=== PATIENT | female | born 1945 | race Caucasian/White ===

== ENCOUNTER 2017-08-02 11:03 | Observation (INO) | payer MEDICARE ==
[2017-08-02] MEDS ORDERED: Morphine INJ* 4 MG/ML 1 ML CARPUJECT IV ONE ×2 (11:25→14:48)
[2017-08-02] MEDS ORDERED: Ondansetron INJ* 2 MG/ML VIAL IV ONE (11:25)
[2017-08-02] MEDS ORDERED: NS 0.9% 1000 ML* 1,000 ML IV ONE ×2 (11:25→13:03)
--- NOTE | 2017-08-02 12:16 | RAD ---
HISTORY: Abdominal pain COMPARISONS: June 29, 2017 VIEWS: 1: frontal portable view of the chest at 12:00 PM FINDINGS: LINES AND TUBES: None. CARDIOMEDIASTINAL SILHOUETTE: The cardiomediastinal silhouette is normal for portable technique. PLEURA: The costophrenic angles are sharp. No pleural abnormalities are noted. LUNG PARENCHYMA: The lungs are clear. ABDOMEN: The upper abdomen is clear. There is no subphrenic gas. BONES AND SOFT TISSUES: No bone or soft tissue abnormalities are noted. IMPRESSION: NO ACTIVE CARDIOPULMONARY DISEASE.
[2017-08-02 12:50] LABS: Hematocrit 38 % (35-47); Hemoglobin 12.6 g/dl (12.0-16.0); Mean Corpuscular HGB Conc 33 g/dl (31-36); Mean Corpuscular Hemoglobin 31 pg (27-31); Mean Corpuscular Volume 92 fL (80-97); Mean Platelet Volume 11 um3 (7.4-10.4); Red Cell Distribution Width 15 % (10.5-15); White Blood Count 6.4 10^3/ul (3.5-10.8)
[2017-08-02 13:02] LABS: Albumin 4.4 g/dL (3.2-5.2); BUN/Creatinine Ratio 30.6 (8-20); C Reactive Protein 1.46 mg/L (< 5.00); Calcium 9.5 mg/dL (8.6-10.3); EGFR African American 71.9 (>60); EGFR Non-African American 55.9 (>60); Globulin 1.8 g/dL (2-4); Magnesium 2.1 mg/dL (1.9-2.7); Potassium 4.7 mmol/L (3.5-5.0); Total Bilirubin 0.4 mg/dL (0.2-1.0); Total Protein 6.2 g/dL (6.4-8.9)
[2017-08-02] MEDS ORDERED: Iodixanol* (CONTRAST) 320 MG/ML 100 ML SDV IV ONE (13:19)
--- NOTE | 2017-08-02 14:01 | RAD ---
CLINICAL HISTORY: Severe constipation, vomiting COMPARISON: November 16, 2007 TECHNIQUE: Multiple contiguous axial CT scans were obtained of the abdomen and pelvis after the administration of intravenous contrast. Coronal and sagittal multiplanar reformations are submitted for review. Oral contrast was administered. Delayed images were obtained through the abdomen and pelvis. FINDINGS: LUNG BASES: The lung bases are clear. LIVER: The liver is normal in shape, size, contour, and attenuation. BILE DUCTS: There is no intrahepatic or extrahepatic biliary dilatation. GALLBLADDER: The gallbladder is normal, without pericholecystic inflammatory change. PANCREAS: The pancreas is normal, without mass or ductal dilatation. SPLEEN: Normal in size and appearance. UPPER GI TRACT: Evaluation of the gastrointestinal tract is limited by incomplete gastric distention. The upper GI tract is unremarkable. SMALL BOWEL AND MESENTERY: The small bowel is normal in contour, course, and caliber. There is no obstruction or dilatation. COLON: There are multiple diverticula of the sigmoid colon. There is no pericolonic inflammatory change. ADRENALS: Normal bilaterally. KIDNEYS: The kidneys are normal in shape, size, contour, and axis. There is no hydronephrosis or nephrolithiasis. BLADDER: The bladder is smooth in contour. PELVIC ORGANS: The pelvic organs are not visualized. AORTA: The aorta is normal. IVC: Unremarkable LYMPH NODES: There is no lymphadenopathy by size criteria. ABDOMINAL WALL: There is no evidence for abdominal wall hernia. BONES AND SOFT TISSUES: Mild degenerative changes are noted OTHER: None IMPRESSION: DIVERTICULOSIS
[2017-08-02 14:09] LABS: Urine Bacteria Absent (Absent); Urine Bilirubin Negative (Negative); Urine Glucose Negative (Negative); Urine Nitrite Positive (Negative)
[2017-08-02] MEDS ORDERED: Bisacodyl SUPP* 10 MG SUPP PR ONE (15:37)
[2017-08-02] MEDS ORDERED: Fluconazole 150 MG (NF) 150 MG TAB PO ONE (15:37)
[2017-08-02] MEDS ORDERED: NS 0.9% 1000 ML* 1,000 ML IV SCH (15:45)
[2017-08-02] MEDS ORDERED: LORazepam TAB(*) 1 MG PO PRN (15:45)
--- NOTE | 2017-08-02 15:47 | ED ---
Ivory Gotti SooYoung, scribed for Lul Tee MD on 08/02/17 at 1124 . Abdominal Pain/Female - HPI Summary HPI Summary: A 71 y/o F presents to ED [place] [facility] [place]/o lower abd pain onset this AM. Pain described as cramps and rated as 9 out of 10 at bedside. She is taking Loparemide, last BM was yesterday and "very small chunk." Associated sx: vomiting 2x, constipation, fever, chills. Denies: abd distension, leg pain/ swelling. Aggravating factors: bearing down. Past surgeries: hysterectomy; denies abd surgeries. Pert PMHx: IBS, gastroparesis. Denies DM, diverticulitis. Pt is a non-smoker, no ETOH. 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 - History of Current Complaint Chief Complaint: EDGeneral Stated Complaint: VOMITTING/CONSTIPATION Time Seen by Provider: 08/02/17 11:18 Hx Obtained From: Patient Onset/Duration: Lasting Hours - this AM, Still Present Timing: Constant Severity Currently: Severe Pain Intensity: 9 - at bedside Pain Scale Used: 0-10 Numeric Location: Diffuse - lower abd Character: Cramping Associated Signs and Symptoms: Positive: Fever, Constipation, Vomiting, Other: - pos: chills; neg: abd distension, leg pain/edema Allergies/Adverse Reactions: Allergies Allergy/AdvReac Type Severity Reaction Status Date / Time Sulfa Antibiotics Allergy Unknown Verified 04/07/13 12:43 Reaction Details Home Medications: Home Medications Bupropion XL* [Wellbutrin XL *] 300 mg PO DAILY 08/02/17 [History Confirmed ] Calcium Carbonate CHEW TAB* [Tums*] 500 - 1,000 mg PO Q3HR PRN 08/02/17 [ History Confirmed 08/02/17] Diphenhydramine-Acetaminophen [Tylenol Pm Extra Strength 500-25 mg] 1 tab PO QPM 08/02/17 [History Confirmed 08/02/17] Fexofenadine (NF) [Zoila 180 (NF)] 180 mg PO DAILY 08/02/17 [History Confirmed 08/02/17] Ketoconazole (Topical) [Ketoconazole] 2 % TOPICAL BID PRN 08/02/17 [History Confirmed 08/02/17] Loperamide CAP* [Imodium CAP*] 2 mg PO TID PRN 08/02/17 [History Confirmed 08/02] Lorazepam [Ativan 2 MG TAB] 2 mg PO BEDTIME PRN 08/02/17 [History Confirmed ] Lysine [l-Lysine] 1,000 mg PO DAILY 08/02/17 [History Confirmed 08/02/17] Methylcellulose (Laxative) [Citrucel] 500 mg PO DAILY 08/02/17 [History Confirmed 08/02/17] Mouthwashes [Biotene Dry Mouth Mouthwa] 1 liq PO DAILY PRN 08/02/17 [History Confirmed 08/02/17] Multiple Vitamins W/ Minerals [One Daily Multivitamin Wo] 1 tab PO DAILY [History Confirmed 08/02/17] Naproxen TAB* [Naprosyn 250 mg TAB*] 500 mg PO BID PRN 08/02/17 [History Confirmed 08/02/17] Omeprazole CAP* [Prilosec CAP* 20 MG] 40 mg PO BID 08/02/17 [History Confirmed 08/02/17] Ondansetron TAB* [Zofran 4 MG Tab*] 4 mg PO Q6H PRN 08/02/17 [History Confirmed 08/02/17] Polyethylene Glycol-Propylene [Systane Ultra 0.4-0.3 %] 2 drop OPHTHALMIC DAILY 08/02/17 [History Confirmed 08/02/17] Ranitidine TAB (NF) [Zantac TAB (NF)] 300 mg PO BID 08/02/17 [History Confirmed 08/02/17] Rizatriptan (NF) [Maxalt-[employer] (NF)] 10 mg PO Q2HR PRN 08/02/17 [History Confirmed 08/02/17] Sertraline* [Zoloft*] 200 mg PO DAILY 08/02/17 [History Confirmed 08/02/17] Simethicone [Phazyme] 180 mg PO DAILY 08/02/17 [History Confirmed 08/02/17] Simvastatin TAB(NF) [Zocor(NF)] 20 mg PO BEDTIME 08/02/17 [History Confirmed ] Triamcinolone NASAL SPRAY* [Nasacort AQ Nasal [place]*] 1 spray BOTH NARES QAM [History Confirmed 08/02/17] Vitamin E CAP* 400 unit PO DAILY 08/02/17 [History Confirmed 08/02/17] Ziprasidone * [Geodon (generic) *] 40 mg PO DAILY 08/02/17 [History Confirmed ] PMH/Surg Hx/FS Hx/Imm Hx Previously Healthy: No Endocrine/Hematology History: Denies: Hx Diabetes - pre-DM GI History: Reports: Hx Irritable Bowel, Other GI Disorders - pos: gastroparesis Denies: Hx Diverticulosis Sensory History: Denies: Hx Legally Blind Opthamlomology History: Denies: Hx Legally Blind - Cancer History Hx Chemotherapy: No Hx Radiation Therapy: No Infectious Disease History: No Infectious Disease History: Denies: Traveled Outside the [place] in Last 30 Days - Family History Family History: sister: RA. mother of Breast CA - Social History Occupation: Employed Full-time - [employer] Lives: Alone Alcohol Use: None Hx Tobacco Use: No Review of Systems Positive: Fever, Chills Positive: Abdominal Pain, Vomiting, Other - pos: constipation; neg: abd distention Negative: Edema - neg: leg edema/pain All Other Systems Reviewed And Are Negative: Yes Physical Exam Triage Information Reviewed: Yes Vital Signs On Initial Exam: Initial Vitals Temp Pulse Resp BP Pulse Ox 97.8 F 59 20 142/66 99 08/02/17 11:05 08/02/17 11:05 08/02/17 11:05 08/02/17 11:05 08/02/17 11:05 Vital Signs Reviewed: Yes Appearance: Positive: Well-Appearing, No Pain Distress Skin: Positive: Warm Head/Face: Positive: Normal Head/Face Inspection Eyes: Positive: EOMI ENT: Positive: Normal ENT inspection Neck: Positive: Nontender Respiratory/Lung Sounds: Positive: Clear to Auscultation, Breath Sounds Present Cardiovascular: Positive: RRR. Negative: Murmur Abdomen Description: Positive: Distended - lower abdomen, Other: - tender lower abdomen Musculoskeletal: Positive: Strength/ROM Intact Neurological: Positive: Sensory/Motor Intact, Alert, Oriented to Person Place, Time, CN Intact II-III Psychiatric: Positive: Normal Diagnostics - Vital Signs Vital Signs Temp Pulse Resp BP Pulse Ox 08/02/17 11:05 97.8 F 59 20 142/66 99 - Laboratory Result Diagrams: 08/02/17 11:44 08/02/17 11:44 Lab Statement: Any lab studies that have been ordered have been reviewed, and results considered in the medical decision making process. - Radiology CXR Xray Interpretation: No Acute Changes - IMPRESSION: No active cardiopulmonary dz. ED physician has reviewed this radiology report and agrees. Radiology Interpretation Completed By: Radiologist - CT A/P CT CT Interpretation: Positive (See Comments) - IMPRESSION: DIVERTICULOSIS. ED physician has reviewed this radiology report and agrees. CT Interpretation Completed By: Radiologist - EKG 1134 Cardiac Rate: NL EKG Rhythm: Sinus Rhythm - [address] Segment: Normal EKG Interpretation: nml PA, QRS, QT. No STEMI Abdominal Pain Fem Course/Dx - Course Course Of Treatment: A 71 y/o F presents to ED [place] [facility] [place] c/o lower abd pain onset this AM. Pain described as cramps and rated as 9 out of 10 at bedside. She is taking Loparemide, last BM was yesterday and "very small chunk. " Associated sx: vomiting 2x, constipation, fever, chills. Denies: abd distension, leg pain/swelling. Aggravating factors: bearing down. Past surgeries : hysterectomy; denies abd surgeries. Pert PMHx: IBS, gastroparesis. Denies DM, diverticulitis. Pt is a non-smoker, no ETOH. 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 Pt given fluids, morphine, zofran in ED. EKG is NSR, no STEMI. CXR shows no active cardiopulmonary dz. A/P CT shows "diverticulosis." UA results show 1+ blood, positive nitrate, 1+ leukocyte esterase, 1+ RBC, squamous epithelia present, hyaline casts present. Consulted with hospitalist, will admit pt. - Diagnoses Provider Diagnoses: Lower abdominal pain, unspecified - Provider Notifications Discussed Care Of Patient With: Melida Powell - HOSPITALIST Time Discussed With Above Provider: 15:00 Instructed by Provider To: Admit As Inpatient Discharge - Discharge Plan Condition: Stable Disposition: ADMITTED TO [facility] The documentation as recorded by the Ivory tuttle SooYoung accurately reflects the service I personally performed and the decisions made by me, Lul Tee MD.
[2017-08-02] MEDS ORDERED: cefTRIAXone VIAL(*) 1,000 MG in NS 0.9% 50 ML* 50 ML IVPB SCH (16:00)
[2017-08-02] MEDS ORDERED: Fluconazole 100 MG TAB* TAB PO ONE (17:00)
[2017-08-02] MEDS: Acetaminophen TAB* 325 MG PO PRN ×2 (17:01→21:11)
[2017-08-02] MEDS: Ondansetron INJ* 2 MG/ML VIAL IV SCH ×2 (17:02→21:08)
[2017-08-02] MEDS ORDERED: oxyCODONE/Acetamin 5/325 MG* TAB PO PRN (17:08)
[2017-08-02] MEDS ORDERED: Senna TAB PO SCH (21:00)
[2017-08-02] MEDS ORDERED: Atorvastatin* 10 MG TAB PO SCH (21:00)
[2017-08-02] MEDS: Omeprazole CAP* 20 MG PO SCH (21:10)
[2017-08-02] MEDS: Famotidine TAB* 20 MG PO SCH (21:13)
[2017-08-02] MEDS: Docusate CAP* 100 MG PO SCH (21:13)
[2017-08-02] MEDS: Heparin VIAL(*) 5000 UNITS/ML VIAL (FIVE THOUSAND) SUBCUT SCH (21:15)
--- NOTE | 2017-08-02 22:35 | HP ---
CC: Dr. Jody Pérez * HISTORY AND PHYSICAL: DATE OF ADMISSION: 08/02/17 PRIMARY CARE PROVIDER: Dr. Jody Pérez. ATTENDING PHYSICIAN WHILE IN THE HOSPITAL: Dr. Melida Powell * (report dictated by Micah Zavala NP). CHIEF COMPLAINT: Abdominal pain. HISTORY OF PRESENTING ILLNESS: Ms. Recinos is a 71-year-old female patient. She has a history of hypertension, hyperlipidemia, gastroparesis, anxiety, migraines , IBS, and a history of GERD. She comes into the emergency department today stating that since this morning, she has had abdominal discomfort in the lower pelvic area. She states she chronically has abdominal pain from her gastroparesis, but today the pain was increased and much worse than what it had been previously. She states the pain has been constant. She describes the pain as a sharp stabbing pain in the lower abdomen just suprapubic is where she points. She states it does not get any better or worse with meals. She denied having any fevers, did admit to having some chills, and she denied having any urinary symptoms. Exception she does state that she has noticed that she has been having some irritation in her vaginal area describing a yeast infection, she is actually being actively treated for this by her primary. The patient says that the pain was not getting any better, so she came into the ER today. She says that she has not had a bowel movement in the last 3 days. She has been taking Lomotil basically daily for the last 2 weeks. She thought that maybe she was constipated, came in, was evaluated. She received several rounds of IV pain medications, it was found that she had a UTI and we were asked to evaluate for admission. PAST MEDICAL HISTORY: Include: 1. Hyperlipidemia. 2. Hypertension. 3. Gastroparesis. 4. Anxiety. 5. Migraines. 6. IBS. 7. GERD. PAST SURGICAL HISTORY: She has had hysterectomy. MEDICATIONS: The home meds according to the list that she provided includes: 1. Ativan 2 mg at bedtime as needed. 2. Tylenol PM 1 tablet at bedtime. 3. Nasacort 1 spray both nares q.a.m. 4. Calcium carbonate 500 to 1000 mg every 3 hours as needed. 5. Mouthwash Biotene 1 liquid p.o. daily as needed. 6. Systane eye drops 2 drops ophthalmic daily. 7. Fexofenadine 180 mg daily. 8. Multivitamin 1 tablet daily. 9. Simethicone 180 mg daily. 10. Citrucel 500 mg daily. 11. Lysine 1000 mg daily. 12. Geodon 40 mg daily. 13. Vitamin E 400 units daily. 14. Zoloft 200 mg p.o. daily. 15. Verapamil 180 mg daily. 16. Maxalt 10 mg p.o. every 2 hours as needed for headache. 17. Zocor 20 mg at bedtime. 18. Zantac 300 mg p.o. b.i.d. 19. Zofran 4 mg every 6 hours as needed by mouth for nausea. 20. Wellbutrin 300 mg daily. 21. Imodium 2 mg p.o. t.i.d. for as needed. 22. Naproxen 500 mg p.o. b.i.d. as needed. 23. Omeprazole 40 mg p.o. b.i.d. 24. Ketoconazole 2% topically b.i.d. as needed. ALLERGIES TO MEDICATION: Include SULFA drugs. FAMILY HISTORY: Her mother had history of breast cancer. Father had a history of [place]. SOCIAL HISTORY: She does not smoke, she does not drink. She has 2 children. Surrogate decision maker is her daughter. REVIEW OF SYSTEMS: There is no documented fever. She denied any significant weight change. There was no rhinorrhea. No sore throat. No thyroid enlargement. Denied having any chest pain. There is lower abdominal pain from my HPI. There was no nausea, no vomiting. She denies any dysuria or any frequency. Denied having any loss of consciousness. No pruritus and no skin ulceration. Review of 14 systems completed, all others negative. PHYSICAL EXAMINATION GENERAL: At this time, Ms. Recinos is a 71-year-old female patient. She is sitting in the ER stretcher. She does not appear to be in any acute distress. She is awake, she is alert, she is oriented x3. VITAL SIGNS: Blood pressure 148/62 with pulse 64, respirations 16, O2 sat 97%, temperature 97.8. HEENT: Head: Atraumatic, normocephalic. Eyes: EOMs are intact. Sclerae anicteric and not pale. NECK: Supple. Throat: Oral mucosa appears to be moist. No oropharyngeal erythema. LUNGS: Clear to auscultation bilaterally. No wheezes, rales, or rhonchi. HEART: Sounds S1, S2. Regular rate and rhythm. No murmurs, rubs, or gallops. ABDOMEN: Soft, it was flat. Bowel sounds were present. There was tenderness to suprapubic area and she was nondistended. EXTREMITIES: Pulses were 2+ throughout. She is able to move all 4 extremities with 5/5/ strength. NEUROLOGICAL: She is awake, alert, oriented x3. No gross focal deficits. SKIN: Her skin is intact. She does have some erythema noted in the vaginal area, otherwise skin is intact. DIAGNOSTIC STUDIES/LAB DATA: WBC 6.4, RBC 4.10, hemoglobin 12.6, hematocrit 38 , platelet count 114. INR 0.92. Sodium was 137; potassium 4.7; chloride 107; bicarb 24; BUN 30; her creatinine was 0.98, no previous for comparison; glucose 139; lactate 1.6; calcium 9.5. Total bili 0.4, AST 19, ALT 17, alk phos 72. Troponin 0. Albumin of 4.4. Urine showed 1+ blood, positive nitrite, 1+ leukocyte esterase, 1+ rbc. She did have a chest x-ray obtained today, impression: No active cardiopulmonary disease. There was a CT abdomen and pelvis, impression: Rare diverticulosis. EKG shows normal sinus rhythm, rate of 61. No ST elevation or T-wave inversions. Old medical records reviewed. ASSESSMENT AND PLAN: Ms. Recinos is a 71-year-old female patient coming into the ER today with complaints of abdominal discomfort. She will be admitted under inpatient status for: 1. Abdominal pain. Again, I suspect this is probably a combination of her being constipated in addition this also secondary to urinary tract infection. My plan will be to go ahead and put her on aggressive bowel regimen, hold her naproxen, hold the Lomotil, put her on senna, I will give her suppository. I will give Colace and we will continue to follow her. I will treat the urinary tract infection. In addition to this, she does appear to have what appears to be a yeast infection, which I will give her a dose of Diflucan for and we will also start nystatin. 2. Hyperlipidemia. Continue her statin therapy. 3. Hypertension. Continue her verapamil. 4. Gastroparesis. Continue her current medical regimen. 5. Anxiety. Continue with supportive care and her meds as described. 6. Gastroesophageal reflux disease. She is on PPI and H2 therapy. We will continue with these medications. 7. Irritable bowel syndrome. Continue her current medical regimen. 8. DVT prophylaxis. She is moderate risk. She will be placed on heparin subcu. 9. Code status. She is full code. 10. Fluids, electrolytes, and nutrition: She can have a heart-healthy diet. TIME SPENT: On this admission was 60 minutes, greater than half the time was spent [id number] with the patient obtaining my history and physical, other half the time was spent going over the plan of care with the patient and implementing the plan of care. I did discuss the plan of care with my attending doctor, Dr. Powell; she is in agreement. MICAH ZAVALA NP [id number]/[facility]PS #: [id number] [place]
[2017-08-03] MEDS: Nystatin TOP POWDER* 15 GM BTL TOPICAL SCH ×2 (00:01→07:47)
[2017-08-03] MEDS: Ondansetron INJ* 2 MG/ML VIAL IV SCH ×3 (00:32→06:25)
[2017-08-03] MEDS: Heparin VIAL(*) 5000 UNITS/ML VIAL (FIVE THOUSAND) SUBCUT SCH (06:27)
[2017-08-03 06:50] LABS: Hematocrit 32 % (35-47); Hemoglobin 10.7 g/dl (12.0-16.0); Mean Corpuscular HGB Conc 33 g/dl (31-36); Mean Corpuscular Hemoglobin 31 pg (27-31); Mean Corpuscular Volume 92 fL (80-97); Mean Platelet Volume 10 um3 (7.4-10.4); Red Blood Count 3.47 10^6/ul (4.0-5.4); Red Cell Distribution Width 14 % (10.5-15); White Blood Count 3.5 10^3/ul (3.5-10.8)
[2017-08-03 06:51] LABS: Comments Flag Yes
[2017-08-03 06:52] LABS: Add Diff/Slide Review? Slide Review Added
[2017-08-03 07:06] LABS: BUN/Creatinine Ratio 19.3 (8-20); Calcium 8.6 mg/dL (8.6-10.3); EGFR African American 81.5 (>60); EGFR Non-African American 63.3 (>60)
[2017-08-03] MEDS: Omeprazole CAP* 20 MG PO SCH (07:48)
[2017-08-03] MEDS: Docusate CAP* 100 MG PO SCH (07:48)
[2017-08-03] MEDS: Famotidine TAB* 20 MG PO SCH (07:49)
[2017-08-03 07:55] VITALS: BP 146/59
[2017-08-03] MEDS ORDERED: Simethicone TAB* 80 MG TAB.CHEW PO SCH (09:00)
[2017-08-03] MEDS ORDERED: Artificial Tears* 15 ML BTL BOTH EYES SCH (09:00)
[2017-08-03] MEDS ORDERED: Sertraline* 100 MG TAB PO SCH (09:00)
[2017-08-03] MEDS ORDERED: BuPROPion XL* 300 MG TAB.XL PO SCH (09:00)
[2017-08-03] MEDS ORDERED: Cetirizine* 10 MG TAB PO SCH (09:00)
[2017-08-03] MEDS ORDERED: Verapamil SR CAP* 180 MG PO SCH (09:00)
[2017-08-03] MEDS ORDERED: Ziprasidone * 20 MG CAP (generic Geodon) PO SCH (09:00)
--- NOTE | 2017-08-03 09:00 | DCNOTE ---
Patient seen this morning. Has had BM x 3 and lower abdominal pain that she presented with has resolved. Chronic epigastric pain she attributes to gastroparesis is at baseline. Does report some occasional dysuria over the past week or so. Says she struggles between constipation and diarrhea. On exam, RRR, s1 and s2 present, no m/g/r, abd obese, soft, non-tender in lower abdomen, mild TTP in epigastric area, no LE edema Discussed recommendations to try to reduce episodes of constipation. S/P Fluconazole 150 mg x 1 for vulvovaginitis. Will give 3 additional days of ABx for UTI as UCx growing E. Coli > 100 K. D/C home today and f/u with PCP.
--- NOTE | 2017-08-05 11:14 | DS ---
CC: Dr. Jody Pérez DISCHARGE SUMMARY: DATE OF ADMISSION: 08/02/17 DATE OF DISCHARGE: 08/03/17 PRIMARY CARE PHYSICIAN: Dr. Jody Pérez. PRINCIPAL DISCHARGE DIAGNOSES: 1. Abdominal pain secondary to constipation. 2. Acute cystitis. SECONDARY DIAGNOSES: 1. Hyperlipidemia. 2. Hypertension. 3. Gastroparesis. 4. Anxiety. 5. Migraines. 6. Irritable bowel syndrome. 7. Gastroesophageal reflux disease. DISCHARGE MEDICATION REGIMEN: 1. Keflex 250 mg by mouth four times daily. 2. Nystatin powder one application topically three times daily as needed for rash. 3. Omeprazole 40 mg by mouth two times daily. 4. Naproxen 500 mg by mouth two times daily as needed for pain. 5. Loperamide 2 mg by mouth three times daily as needed for diarrhea. 6. Wellbutrin 300 mg by mouth daily. 7. Zofran 4 mg by mouth every 6 hours as needed for nausea. 8. Ranitidine 300 mg by mouth three times daily. 9. Simvastatin 20 mg by mouth at bedtime. 10. Rizatriptan 10 mg by mouth every two hours as needed for migraine. 11. Verapamil 180 mg by mouth daily. 12. Sertraline 200 mg by mouth daily. 13. Vitamin E 400 units by mouth daily. 14. Ziprasidone 40 mg by mouth daily. 15. Lysine 1000 mg by mouth daily. 16. Citrucel 500 mg by mouth daily. 17. Simethicone 180 mg by mouth daily. 18. Multivitamin one tablet by mouth daily. 19. Fexofenadine 180 mg by mouth daily. 20. Systane eye drops two drops ophthalmic daily. 21. Biotene Dry Mouth mouthwash 1 liquid p.o. daily as needed for dry mouth. 22. Tums 500 mg to 1000 mg by mouth every three hours as needed for ingestion. 23. Triamcinolone one spray in both nares daily. 24. Tylenol PM one tablet by mouth nightly. 25. Lorazepam 2 mg by mouth at bedtime as needed for anxiety. STUDIES DONE DURING HOSPITALIZATION: CT abdomen and pelvis, impression: Diverticulosis. Chest x-ray , impression: No active cardiopulmonary disease. HISTORY OF PRESENT ILLNESS AND HOSPITAL SUMMARY: Please see the full history and physical by Micah ellis NP for full details. Briefly, Ms. Recinos is a 71-year- old female with a past medical history as above, who presented to the hospital with lower abdominal discomfort. The pain was unusual for h er. Incidentally, she stated that she had not had a bowel movement for the past three days. She und erwent imaging that was relatively unremarkable aside from stool. There was concern for possible uri nary tract infection as the patient did endorse some dysuria and had a positive UA. She was started on antibiotics and an aggressive bowel regimen. She had three large bowel movements while hospitaliz ed and her abdominal pain resolved. She was discharged the following day on oral Keflex for her unco mplicated cystitis. She will follow up with her PCP as an outpatient. TIME SPENT: Total time spent on this discharge 45 minutes. This is a summary of the hospitalization. Please see the full medical record for further details. [id number]/[id number] #: [id number]
== END 2017-08-03 10:10 | disposition home or self-care (01) ==
LOC: ED 11:03 → MED 15:05
PROVIDERS: ADMIT Internal Medicine; ATTEND Hospitalist
DX: R10.2 Pelvic and perineal pain (principal); I10 Essential (primary) hypertension; E78.5 Hyperlipidemia, unspecified; K31.84 Gastroparesis; F41.9 Anxiety disorder, unspecified; K58.9 Irritable bowel syndrome, unspecified; K21.9 Gastro-esophageal reflux disease without esophagitis; Z79.899 Other long term (current) drug therapy; K57.90 Diverticulosis of intestine, part unspecified, without perforation or abscess without bleeding
CPT/HCPCS: 36415; 71010; 74177; 80048; 80053; 81003; 81015; 83605; 83690; 83735; 84484; 85025; 85060; 85610; 85730; 86140; 86850; 86900; 86901; 87040; 87077; 87086; 87186; 93005; 96365; 96372; 96375; 96376; 99283; A9270-GY; G0378; J0696; J1644; J2270; J2405; Q9967

== ENCOUNTER 2017-08-27 11:18 | Observation (INO) | payer MEDICARE ==
[2017-08-27] MEDS ORDERED: NS 0.9% 1000 ML* 1,000 ML IV SCH ×2 (16:00→20:45)
[2017-08-27 16:31] LABS: Hematocrit 39 % (35-47); Hemoglobin 12.9 g/dl (12.0-16.0); Mean Corpuscular HGB Conc 33 g/dl (31-36); Mean Corpuscular Hemoglobin 30 pg (27-31); Mean Corpuscular Volume 90 fL (80-97); Mean Platelet Volume 9 um3 (7.4-10.4); Red Blood Count 4.28 10^6/ul (4.0-5.4); Red Cell Distribution Width 14 % (10.5-15)
[2017-08-27 16:57] LABS: Albumin 4.2 g/dL (3.2-5.2); BUN/Creatinine Ratio 23.3 (8-20); C Reactive Protein 3.59 mg/L (< 5.00); Calcium 9.1 mg/dL (8.6-10.3); EGFR African American 79.4 (>60); EGFR Non-African American 61.7 (>60); Globulin 2.2 g/dL (2-4); Total Bilirubin 0.4 mg/dL (0.2-1.0); Total Protein 6.4 g/dL (6.4-8.9)
[2017-08-27 16:59] LABS: Urine Bacteria Absent (Absent); Urine Bilirubin Negative (Negative); Urine Glucose Negative (Negative); Urine Nitrite Negative (Negative)
[2017-08-27] MEDS ORDERED: Iohexol 300* (CONTRAST) 10 ML SDV IV ONE (17:00)
[2017-08-27] MEDS ORDERED: NS 0.9% 1000 ML* 1,000 ML IV ONE (17:18)
[2017-08-27] MEDS ORDERED: Ondansetron INJ* 2 MG/ML VIAL IV ONE (17:18)
[2017-08-27] MEDS ORDERED: Morphine INJ* 4 MG/ML 1 ML CARPUJECT IV ONE ×3 (17:21→19:15)
--- NOTE | 2017-08-27 17:44 | RAD ---
CLINICAL HISTORY: Abdominal pain COMPARISON: August 02, 2017 TECHNIQUE: Multiple contiguous axial CT scans were obtained of the abdomen and pelvis after the administration of intravenous contrast. Coronal and sagittal multiplanar reformations are submitted for review. Oral contrast was administered. Delayed images were obtained through the abdomen and pelvis. FINDINGS: LUNG BASES: The lung bases are clear. LIVER: The liver is diffusely low in attenuation compared to the spleen. There are no focal hepatic parenchymal masses. The liver measures 19 cm in long axis. BILE DUCTS: There is no intrahepatic or extrahepatic biliary dilatation. GALLBLADDER: The gallbladder is normal, without pericholecystic inflammatory change. PANCREAS: The pancreas is normal, without mass or ductal dilatation. SPLEEN: Normal in size and appearance. UPPER GI TRACT: Evaluation of the gastrointestinal tract is limited by incomplete gastric distention. The upper GI tract is unremarkable. SMALL BOWEL AND MESENTERY: The small bowel is normal in contour, course, and caliber. There is no obstruction or dilatation. COLON: There is diffuse mucosal thickening of the sigmoid colon. There are multiple diverticula of the descending and sigmoid colon. There is no pericolonic inflammatory change. ADRENALS: Normal bilaterally. KIDNEYS: The kidneys are normal in shape, size, contour, and axis. There is no hydronephrosis or nephrolithiasis. BLADDER: The bladder is smooth in contour. PELVIC ORGANS: The ovaries are identified and are grossly normal. The uterus is not identified. AORTA: The aorta is normal. IVC: Unremarkable LYMPH NODES: There is no lymphadenopathy by size criteria. ABDOMINAL WALL: There is no evidence for abdominal wall hernia. BONES AND SOFT TISSUES: There are mild diffuse degenerative changes. OTHER: None IMPRESSION: 1. DIFFUSE MUCOSAL THICKENING OF THE SIGMOID COLON SUGGESTIVE OF COLITIS INCLUDING INFECTIOUS OR NONINFECTIOUS/INFLAMMATORY COLITIS. 2. DIVERTICULOSIS. 3. HEPATOMEGALY WITH FATTY INFILTRATION OF THE LIVER.
--- NOTE | 2017-08-27 19:55 | ED ---
Lemuel Gotti Angela, scribed for Jeremias Heath MD on 08/27/17 at 1720 . Abdominal Pain/Female - HPI Summary HPI Summary: This pt is a 71 y/o female, with history of IBS and gastroparesis, presenting to [facility] c/o severe abd pain x2 days. Pt reports that she is always bloated. She additionally notes nausea, constipation, diarrhea (today). Pt denies bloody stools. She states that she has had this pain a couple of weeks ago but resolved. Pt denies fever, chills, vomiting, urinary symptoms, LE swelling. Her pain at its worse is 9/10 in severity. Currently she rates her pain 9/10 in severity. Pt is followed up by GI, used to see Dr. Hope but he retired. She reports she has dry mouth from medication. Surgeries: hysterectomy. - History of Current Complaint Chief Complaint: EDAbdPain Stated Complaint: SEVERE STOMACH PAIN Time Seen by Provider: 08/27/17 17:03 Hx Obtained From: Patient Onset/Duration: Lasting Days, Still Present Timing: Days Severity Currently: Severe Pain Intensity: 9 Pain Scale Used: 0-10 Numeric Location: Diffuse Radiates: No Associated Signs and Symptoms: Positive: Constipation, Nausea, Diarrhea. Negative: Blood in Stool, Vomiting Allergies/Adverse Reactions: Allergies Allergy/AdvReac Type Severity Reaction Status Date / Time Sulfa Antibiotics Allergy Unknown Verified 04/07/13 12:43 Reaction Details PMH/Surg Hx/FS Hx/Imm Hx Endocrine/Hematology History: Denies: Hx Diabetes - pre-DM Cardiovascular History: Denies: Hx Hypertension GI History: Reports: Hx Gastroesophageal Reflux Disease, Hx Irritable Bowel, Other GI Disorders - pos: gastroparesis Denies: Hx Diverticulosis Sensory History: Reports: Hx Contacts or Glasses Denies: Hx Legally Blind, Hx Hearing Aid Opthamlomology History: Reports: Hx Contacts or Glasses Denies: Hx Legally Blind - Cancer History Hx Chemotherapy: No Hx Radiation Therapy: No - Surgical History Surgery Procedure, Year, and Place: HYSTERECTOMY. Infectious Disease History: No Infectious Disease History: Denies: Traveled Outside the [place] in Last 30 Days - Family History Family History: sister: RA. mother of Breast CA - Social History Alcohol Use: None Substance Use Type: Reports: None Hx Tobacco Use: No Smoking Status (MU): Never Smoked Tobacco Review of Systems Negative: Fever, Chills Gastrointestinal: Other - constipation Positive: Abdominal Pain, Nausea. Negative: Vomiting, Diarrhea Genitourinary: Negative Musculoskeletal: Negative Negative: Edema Skin: Negative Neurological: Negative Psychological: Normal All Other Systems Reviewed And Are Negative: Yes Physical Exam - Summary Physical Exam Summary: General: well-appearing, no pain distress Skin: warm, color reflects adequate perfusion, dry Head: normal Eyes: EOMI, SIOBHAN ENT: Oral mucosa is dry. Neck: supple, nontender Respiratory: CTA, breath sounds present Cardiovascular: RRR Abdomen: soft, diffuse mild tenderness of the abdomen. Bowel: Hypoactive bowel sounds Musculoskeletal: normal, strength/ROM intact Neurological: normal, sensory/motor intact, A&O x3 Psychological: affect/mood appropriate Triage Information Reviewed: Yes Vital Signs On Initial Exam: Initial Vitals Temp Pulse Resp BP Pulse Ox 98.6 F 66 20 118/82 97 08/27/17 11:38 08/27/17 11:38 08/27/17 11:38 08/27/17 11:38 08/27/17 11:38 Vital Signs Reviewed: Yes - Andria Coma Scale Coma Scale Total: 15 Diagnostics - Vital Signs Vital Signs Temp Pulse Resp BP Pulse Ox 08/27/17 16:59 63 100 08/27/17 16:30 95 08/27/17 16:28 59 97 08/27/17 16:27 141/54 08/27/17 13:37 98.5 F 63 18 118/70 98 08/27/17 11:38 98.6 F 66 20 118/82 97 - Laboratory Lab Results: Lab Results 08/27/17 08/27/17 08/27/17 Range/Units 16:19 16:19 16:19 WBC (3.5-10.8) 10^3/ul RBC (4.0-5.4) 10^6/ul Hgb (12.0-16.0) g/dl Hct (35-47) % MCV (80-97) fL MCH (27-31) pg MCHC (31-36) g/dl RDW (10.5-15) % Plt Count (150-450) 10^3/ul MPV (7.4-10.4) um3 Neut % (Auto) (38-83) % Lymph % (Auto) (25-47) % Luce % (Auto) (1-9) % Eos % (Auto) (0-6) % Baso % (Auto) (0-2) % Absolute Neuts (auto) (1.5-7.7) 10^3/ul Absolute Lymphs (auto) (1.0-4.8) 10^3/ul Absolute Monos (auto) (0-0.8) 10^3/ul Absolute Eos (auto) (0-0.6) 10^3/ul Absolute Basos (auto) (0-0.2) 10^3/ul Absolute Nucleated RBC 10^3/ul Nucleated RBC % INR (Anticoag Therapy) 0.94 (0.77-1.02) APTT 26.5 (26.0-36.3) seconds Sodium 137 (133-145) mmol/L Potassium 4.0 (3.5-5.0) mmol/L Chloride 104 (101-111) mmol/L Carbon Dioxide 26 (22-32) mmol/L Anion Gap 7 (2-11) mmol/L BUN 21 (6-24) mg/dL Creatinine 0.90 (0.51-0.95) mg/dL Est GFR ( Amer) 79.4 (>60) Est GFR (Non-Af Amer) 61.7 (>60) BUN/Creatinine Ratio 23.3 H (8-20) Glucose 105 H (70-100) mg/dL Lactic Acid (0.5-2.0) mmol/L Calcium 9.1 (8.6-10.3) mg/dL Total Bilirubin 0.40 (0.2-1.0) mg/dL AST 15 (13-39) U/L ALT 14 (7-52) U/L Alkaline Phosphatase 71 (34-104) U/L Troponin I 0.00 (<0.04) ng/mL C-Reactive Protein 3.59 (< 5.00) mg/L B-Natriuretic Peptide 40 ( - 100) pg/mL Total Protein 6.4 (6.4-8.9) g/dL Albumin 4.2 (3.2-5.2) g/dL Globulin 2.2 (2-4) g/dL Albumin/Globulin Ratio 1.9 (1-3) Lipase 15 (11.0-82.0) U/L Urine Color Urine Appearance Urine pH (5-9) Ur Specific [place] (1.010-1.030) Urine Protein (Negative) Urine Ketones (Negative) Urine Blood (Negative) Urine Nitrate (Negative) Urine Bilirubin (Negative) Urine Urobilinogen (Negative) Ur Leukocyte Esterase (Negative) Urine WBC (Auto) (Absent) Urine RBC (Auto) (Absent) Ur Squamous Epith Cells (Absent) Urine Bacteria (Absent) Urine Glucose (Negative) 08/27/17 08/27/17 08/27/17 Range/Units 16:19 16:19 16:27 WBC 7.0 (3.5-10.8) 10^3/ul RBC 4.28 (4.0-5.4) 10^6/ul Hgb 12.9 (12.0-16.0) g/dl Hct 39 (35-47) % MCV 90 (80-97) fL MCH 30 (27-31) pg MCHC 33 (31-36) g/dl RDW 14 (10.5-15) % Plt Count 148 L (150-450) 10^3/ul MPV 9 (7.4-10.4) um3 Neut % (Auto) 59.2 (38-83) % Lymph % (Auto) 30.3 (25-47) % Luce % (Auto) 7.8 (1-9) % Eos % (Auto) 2.0 (0-6) % Baso % (Auto) 0.7 (0-2) % Absolute Neuts (auto) 4.1 (1.5-7.7) 10^3/ul Absolute Lymphs (auto) 2.1 (1.0-4.8) 10^3/ul Absolute Monos (auto) 0.5 (0-0.8) 10^3/ul Absolute Eos (auto) 0.1 (0-0.6) 10^3/ul Absolute Basos (auto) 0.1 (0-0.2) 10^3/ul Absolute Nucleated RBC 0 10^3/ul Nucleated RBC % 0 INR (Anticoag Therapy) (0.77-1.02) APTT (26.0-36.3) seconds Sodium (133-145) mmol/L Potassium (3.5-5.0) mmol/L Chloride (101-111) mmol/L Carbon Dioxide (22-32) mmol/L Anion Gap (2-11) mmol/L BUN (6-24) mg/dL Creatinine (0.51-0.95) mg/dL Est GFR ( Amer) (>60) Est GFR (Non-Af Amer) (>60) BUN/Creatinine Ratio (8-20) Glucose (70-100) mg/dL Lactic Acid 0.9 (0.5-2.0) mmol/L Calcium (8.6-10.3) mg/dL Total Bilirubin (0.2-1.0) mg/dL AST (13-39) U/L ALT (7-52) U/L Alkaline Phosphatase (34-104) U/L Troponin I (<0.04) ng/mL C-Reactive Protein (< 5.00) mg/L B-Natriuretic Peptide ( - 100) pg/mL Total Protein (6.4-8.9) g/dL Albumin (3.2-5.2) g/dL Globulin (2-4) g/dL Albumin/Globulin Ratio (1-3) Lipase (11.0-82.0) U/L Urine Color Yellow Urine Appearance Clear Urine pH 6.0 (5-9) Ur Specific [place] 1.023 (1.010-1.030) Urine Protein Negative (Negative) Urine Ketones Negative (Negative) Urine Blood Negative (Negative) Urine Nitrate Negative (Negative) Urine Bilirubin Negative (Negative) Urine Urobilinogen Negative (Negative) Ur Leukocyte Esterase 1+ H (Negative) Urine WBC (Auto) 1+(6-10/hpf) H (Absent) Urine RBC (Auto) 1+(3-5/hpf) H (Absent) Ur Squamous Epith Cells Present H (Absent) Urine Bacteria Absent (Absent) Urine Glucose Negative (Negative) Result Diagrams: 08/27/17 16:19 08/27/17 16:19 Lab Statement: Any lab studies that have been ordered have been reviewed, and results considered in the medical decision making process. - CT Abdomen/pelvis CT CT Interpretation: Positive (See Comments) - IMPRESSION: 1. Diffuse mucosal thickening of the sigmoid colon suggestive of colitis including infectious or noninfectious/inflammatory colitis. 2. Diverticulosis. 3. Hepatomegaly with fatty infiltration of the liver. Dr. Heath has reviewed this radiology report. CT Interpretation Completed By: Radiologist Abdominal Pain Fem Course/Dx - Course Course Of Treatment: Medications reviewed. Allergies noted. CT of abdomen/ pelvis shows 1. Diffuse mucosal thickening of the sigmoid colon suggestive of colitis including infectious or noninfectious/inflammatory colitis. 2. Diverticulosis. 3. Hepatomegaly with fatty infiltration of the liver. In the ED course, pt was given IV fluids, morphine, and zofran. Pain returned. Discussed with hospitalist. Admit hospitalist. - Diagnoses Provider Diagnoses: Abdominal pain, Colitis Discharge - Discharge Plan Condition: Stable Disposition: ADMITTED TO [facility] Referrals: Jody Pérez MD [Primary Care Provider] - The documentation as recorded by the Lemuel tuttle Angela accurately reflects the service I personally performed and the decisions made by , Jeremias Heath MD.
[2017-08-27] MEDS ORDERED: Ondansetron INJ* 2 MG/ML VIAL IV PRN (20:32)
[2017-08-27] MEDS ORDERED: Nystatin TOP POWDER* 15 GM BTL TOPICAL PRN (21:09)
[2017-08-27] MEDS ORDERED: LORazepam TAB(*) 1 MG PO PRN (21:09)
[2017-08-27] MEDS ORDERED: Morphine INJ* 2 MG/ML 1 ML SYRINGE (TWO MG - NEW SYRINGE VERSION) IV PRN (21:16)
[2017-08-27] MEDS ORDERED: metroNIDAZOLE IV 500 MG/100ML* 500 MG/100 ML BAG IVPB SCH (22:00)
[2017-08-27] MEDS: Heparin VIAL(*) 5000 UNITS/ML VIAL (FIVE THOUSAND) SUBCUT SCH (22:05)
[2017-08-27] MEDS: Sucralfate TAB* 1 GM PO SCH (22:06)
[2017-08-27] MEDS ORDERED: Ciprofloxacin 400MG IVPREMIX(* 400 MG/200 ML BAG IVPB SCH (23:30)
--- NOTE | 2017-08-28 01:32 | HP ---
CC: Dr. Jody Pérez * HISTORY AND PHYSICAL: DATE OF ADMISSION: 08/27/17 PRIMARY CARE PROVIDER: Dr. Jody Pérez. CHIEF COMPLAINT: Abdominal pain. HISTORY OF PRESENT ILLNESS: Ms. Recinos is a 71-year-old female with a history of gastroparesis, IBS, hypertension, hyperlipidemia, anxiety, and GERD who presents to the emergency room with complaints of abdominal pain. The patient states that the pain is mostly across her upper abdomen, though she does have pain in her lower quadrants as well. The most focal area of pain is in the epigastrium. She was here approximately 1 month ago with similar pain. She states that when she left the hospital, her pain was back to her baseline level of pain. She states she has pain chronically, however, over the last 2 days, the pain has been much more intense. The patient has been afraid to eat; however; she does state that at times she will binge eat at night to try to settle her stomach. She states sometimes eating helps with the pain, sometimes it does not. The patient states that she also typically has diarrhea, though sometimes will use Imodium. She states that when she was using the Imodium daily, she got into trouble with constipation. More recently, she has been using the Imodium every 3 days and still having diarrheal stools. The patient denies any blood in the stool. The patient denies any blood in the stool. The patient does admit to nausea, but no vomiting. She does state that her nausea is slightly worse than usual. The patient denies any fevers or chills. She states that her acid reflux is quite severe and persistent. PAST MEDICAL HISTORY: 1. Hyperlipidemia. 2. Hypertension. 3. Gastroparesis. 4. Anxiety. 5. Migraines. 6. IBS. 7. GERD. PAST SURGICAL HISTORY: Hysterectomy. ALLERGIES: SULFA DRUGS and REGLAN, which cause tardive dyskinesia. MEDICATIONS: 1. Geodon 40 mg p.o. daily. 2. Vitamin E 400 units p.o. daily. 3. Verapamil 180 mg p.o. daily. 4. Triamcinolone nasal spray 1 squirt to both nostrils daily. 5. Simvastatin 20 mg p.o. q.h.s. 6. Simethicone 180 mg p.o. daily. 7. Sertraline 200 mg p.o. daily. 8. Maxalt 10 mg p.o. q. 2 hours p.r.n. migraine. 9. Ranitidine 300 mg p.o. b.i.d. 10. Systane eye drops 2 drops to both eyes daily. 11. Zofran 4 mg p.o. q. 6 hours p.r.n. nausea. 12. Omeprazole 40 mg p.o. daily. 13. Nystatin powder apply topically under the breasts t.i.d. p.r.n. mauro intertrigo. 14. Naproxen 500 mg p.o. b.i.d. p.r.n. pain. 15. Multivitamin 1 tab p.o. daily. 16. Biotene mouthwash swish and spit daily p.r.n. dry mouth. 17. Citrucel 500 mg p.o. daily. 18. Lysine 1000 mg p.o. daily. 19. Lorazepam 2 mg p.o. q.h.s. p.r.n. anxiety. 20. Imodium 2 mg p.o. t.i.d. p.r.n. diarrhea. 21. Fexofenadine 100 mg p.o. daily. 22. Tylenol PM 1 tab p.o. q.h.s. 23. Tums 500 to 1000 mg p.o. q. 3 hours p.r.n. heartburn. 24. Wellbutrin XL 300 mg p.o. daily. FAMILY HISTORY: Mom at the age of 72, of breast cancer. Dad at the age of 80, of an ME. SOCIAL HISTORY: The patient is a lifelong nonsmoker. She does not drink alcohol. 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 She is . She has 2 children. She indicates that her sister, Lula Pelletier and children, Ping Shoemaker and Alonzo Recinos, are her healthcare proxies. REVIEW OF SYSTEMS: The patient denies any fevers or chills. She denies true anorexia, but states that she is afraid to eat, though as above sometimes eating food help, sometimes it does not. She denies any chest pain, edema. She admits to chronic cough, which she attributes to her severe acid reflux. She denies any shortness of breath. She admits to nausea as above and abdominal pain as above. She has diarrhea chronically. No hematochezia. No hematuria. No dysuria. No focal weaknesses or sensory loss. She states that her eyes have had a burning sensation recently. No dysphagia. She has chronic back pain. She has mild mauro intertrigo under the breasts. She admits to anxiety and depression. PHYSICAL EXAMINATION GENERAL: The patient is a well-developed, elderly female, lying flat in the bed , in no acute distress. VITAL SIGNS: Blood pressure 149/73, pulse 62, respirations 12, temp 98.1, O2 sat 97% on room air. HEENT: Pupils are equal, they are round. Extraocular muscles are intact. Oropharynx is clear. Oral mucosa is dry. There is no submandibular, cervical, or supraclavicular adenopathy. Thyroid is not enlarged. No thyroid nodules are noted. PULMONARY: Lungs are clear to auscultation bilaterally. CARDIAC: Normal S1, S2. Regular rate and rhythm. I do not appreciate any murmurs. There is no lower extremity edema. ABDOMEN: Bowel sounds are present. Abdomen is soft, nondistended. She is diffusely tender, but worse in the epigastrium. MUSCULOSKELETAL: There is no cyanosis or clubbing of the digits. There is full active range of motion of all 4 extremities. NEUROLOGIC: Cranial nerves II through XII are grossly intact. Sensation is intact to light touch throughout. Strength is 5/5 and symmetric in both upper and lower extremities bilaterally. SKIN: Warm and dry. There are no rashes. PSYCH: The patient is alert. She is oriented x3. Affect appears appropriate. DIAGNOSTIC STUDIES/LAB DATA: WBC 7.0, hemoglobin 12.9, hematocrit 39, platelets 148. INR 0.94. Sodium 137, potassium 4.0, chloride 104, CO2 26, BUN 21, creatinine 0.90, glucose 105, lactic acid 0.9. Calcium 9.1, bilirubin 0.4, AST 15, ALT 14, alk phos 71, troponin 0, CRP 3.59, BNP is 40, albumin is 4.2, lipase is 15. Urinalysis reveals a specific gravity of 1.023, 1+ leukocyte esterase, 1+ wbc, absent bacteria, absent nitrite. CT abdomen and pelvis reveals diffuse mucosal thickening of the sigmoid colon suggestive of colitis including infectious or noninfectious inflammatory colitis , diverticulosis is noted, and hepatomegaly with fatty infiltration of the liver is noted. ASSESSMENT AND PLAN: Ms. Recinos is a 71-year-old female with a history of gastroparesis, irritable bowel syndrome, and what sounds to be severe acid reflux, who presents to the emergency room with complaints of diffuse abdominal pain but more specifically in the upper abdomen, epigastrium. 1. Abdominal pain: While the CAT scan is suggestive of colitis, the patient's history is not. The patient does not have an elevated white blood cell count, CRP or fever. She does have diarrhea, but this is chronic. There is no blood in the stool. For now, I will go ahead and start ciprofloxacin and Flagyl; however, I am again not convinced that the patient truly has colitis. I am more suspicious that the patient's pain is related to her gastroparesis and perhaps even just her severe acid reflux. The patient is already on an H2 milton twice daily and PPI twice daily. I will go ahead and add Carafate 1 g p.o. q. a.c. h.s. The patient states that she used to follow with Dr. Hope. I think follow up with Gastroenterology as an outpatient would be warranted. For the gastroparesis, I will go ahead and try erythromycin 250 mg p.o. t.i.d. a.c. The patient should be administered no longer than for 4 weeks at a time. The patient will also have Zofran IV ordered for nausea. 2. Hyperlipidemia: We will continue statin. 3. Hypertension: The patient's blood pressure is under fair control. We will continue verapamil. 4. Anxiety: We will continue the patient's home medication regimen of bupropion XL 300 mg daily, Ativan 1 mg p.o. q.h.s. p.r.n. anxiety, Zoloft 200 mg p.o. daily, and Geodon 40 mg p.o. daily. 5. DVT prophylaxis: According to the Adult Thrombosis Prophylaxis Risk Factor Assessment Guide, the patient has a total risk factor score of 3, making her high risk. She will be placed on heparin 5000 units subcutaneous q. 8 hours. 5. Code status is full. TIME SPENT: Sixty five minutes was spent admitting this patient. [id number]/[facility] #: [id number] [facility]
[2017-08-28] MEDS: Heparin VIAL(*) 5000 UNITS/ML VIAL (FIVE THOUSAND) SUBCUT SCH ×2 (05:41→13:15)
[2017-08-28] MEDS: Sucralfate TAB* 1 GM PO SCH ×2 (07:33→12:31)
[2017-08-28] MEDS: Erythromycin TAB* 250 MG PO SCH ×2 (07:33→12:33)
[2017-08-28 08:36] VITALS: BP 139/53
[2017-08-28] MEDS ORDERED: Famotidine TAB* 20 MG PO SCH (09:00)
[2017-08-28] MEDS ORDERED: Sertraline* 100 MG TAB PO SCH (09:00)
[2017-08-28] MEDS ORDERED: Omeprazole CAP* 20 MG PO SCH (09:00)
[2017-08-28] MEDS ORDERED: BuPROPion XL* 300 MG TAB.XL PO SCH (09:00)
[2017-08-28] MEDS ORDERED: Verapamil SR CAP* 180 MG PO SCH (09:00)
[2017-08-28] MEDS ORDERED: Acetaminophen TAB* 325 MG PO PRN (09:39)
--- NOTE | 2017-08-28 16:17 | DS ---
CC: Dr. Jody Pérez; Jazmin Dodd, [facility], [facility]; Dr. Villalpando * DISCHARGE SUMMARY: DATE OF ADMISSION: 08/27/17 DATE OF DISCHARGE: 08/28/17 HOSPITAL COURSE: This 71-year-old woman presented with abdominal pain. She called the gastroenterology office before coming to the emergency room. She has had chronic problems with abdominal pain. She has diagnosis of both GERD and irritable bowel syndrome and gastroparesis. The patient complained to me that eating causes pain and also bowel movements cause pain. She requested tube feedings. I explained that the tube would simply put food in her stomach and this really will not improve her pain. She then asked if she could have a colostomy because her bowel movements cause pain. I told her that she could not have a colostomy and that it would not improve her pain either. I do not think there was anything acute in a physical sense going on in this admission. CT scan of the abdomen and pelvis was done. There was some mucosal thickening of questionable significance. I note her CRP was within normal limits on admission, her white count was 7.0. She was afebrile and her other vital signs were normal as well. There were no significant findings on her lab work at all. The patient complained of a migraine headache. She was given acetaminophen here. She said she was getting low on her rizatriptan and failed to get a refill from Dr. Pérez. I phoned in a refill for her for that. I also made an appointment for her to see Jazmin Dodd, 09/18/17 at 9:45 a.m. FINAL DIAGNOSES: 1. Irritable bowel syndrome. 2. Gastroesophageal reflux disease. 3. Gastroparesis. 4. Hypertension. 5. Hyperlipidemia. 6. Psychiatric disorder. 7. Migraine headaches. DISCHARGE MEDICATIONS: 1. Verapamil 180 mg daily. 2. Triamcinolone nasal spray 1 spray both nares every morning. 3. Calcium carbonate. 4. Tums tablets p.r.n. 5. Biotene dry mouthwash p.r.n. 6. Systane eye drops 2 drops both eyes daily. 7. Fexofenadine 180 mg daily. 8. Multivitamin with mineral daily. 9. Simethicone 180 mg daily. 10. Lysine 1000 mg daily. 11. Ziprasidone 40 mg daily. 12. Vitamin E capsule 400 units daily. 13. Sertraline 200 mg daily. 14. Simvastatin 20 mg h.s. 15. Ranitidine 300 mg b.i.d. 16. Ondansetron 4 mg every 6 hours p.r.n. 17. Bupropion XL 300 mg daily. 18. Loperamide as directed. 19. Naproxen 500 mg b.i.d. 20. Omeprazole 40 mg b.i.d. 21. Diphenhydramine/acetaminophen 500/25 two q.h.s. 22. Lorazepam 1 mg h.s. p.r.n. 23. Nystatin topical powder t.i.d. p.r.n. 24. Rizatriptan 10 mg every 2 hours p.r.n. 25. Methylcellulose Citrucel 500 mg b.i.d. This is an increase in her prior dose. 26. Loperamide 2 mg every 72 hours p.r.n. This is a reduction in her usual dose. [id number]/[facility] #: [id number] [facility]
[2017-08-28] MEDS ORDERED: Ziprasidone * 20 MG CAP (generic Geodon) PO SCH (17:00)
[2017-08-28] MEDS ORDERED: Atorvastatin* 10 MG TAB PO SCH (21:00)
== END 2017-08-28 13:35 | disposition home or self-care (01) ==
LOC: ED 11:18 → MED 19:28
PROVIDERS: ADMIT Hospitalist; ATTEND Internal Medicine
DX: K58.9 Irritable bowel syndrome, unspecified (principal); K21.9 Gastro-esophageal reflux disease without esophagitis; K31.84 Gastroparesis; I10 Essential (primary) hypertension; E78.5 Hyperlipidemia, unspecified; G43.909 Migraine, unspecified, not intractable, without status migrainosus; F41.9 Anxiety disorder, unspecified; Z79.899 Other long term (current) drug therapy; Z88.2 Allergy status to sulfonamides; K57.90 Diverticulosis of intestine, part unspecified, without perforation or abscess without bleeding; R16.0 Hepatomegaly, not elsewhere classified; R10.9 Unspecified abdominal pain
CPT/HCPCS: 36415; 74177; 80053; 81003; 81015; 82270; 83605; 83630; 83690; 83880; 84484; 85025; 85610; 85730; 86140; 87045; 87046; 87077; 87086; 87328; 87329; 87493; 87899; 93005; 96361; 96365; 96367; 96372; 96375; 96376; 99283; A9270-GY; G0378; J0744; J1644; J2270; J2405; J3490; Q9967

== ENCOUNTER 2018-03-01 12:12 | Emergency (ER) | payer MEDICARE ==
[2018-03-01 15:42] LABS: ABS Basophils 0 10^3/ul (0-0.2); ABS Eosinophils 0.1 10^3/ul (0-0.6); ABS Lymphocytes 1.6 10^3/ul (1.0-4.8); ABS Monocytes 0.4 10^3/ul (0-0.8); ABS Neutrophils 2.5 10^3/ul (1.5-7.7); ABS Nucleated RBC 0 10^3/ul; Eosinophil % 1.8 % (0-6); Hematocrit 38 % (35-47); Hemoglobin 12.8 g/dl (12.0-16.0); Mean Corpuscular HGB Conc 34 g/dl (31-36); Mean Corpuscular Hemoglobin 32 pg (27-31); Mean Corpuscular Volume 93 fL (80-97); Mean Platelet Volume 9.7 um3 (7.4-10.4); Nucleated Red Blood Cells % 0.1; Platelet Count 123 10^3/ul (150-450); Red Blood Count 4.07 10^6/ul (4.00-5.40); Red Cell Distribution Width 14 % (10.5-15); White Blood Count 4.6 10^3/ul (3.5-10.8)
[2018-03-01] MEDS ORDERED: NS 0.9% 1000 ML* 1,000 ML IV ONE ×2 (15:42→16:24)
[2018-03-01] MEDS ORDERED: Morphine VIAL* 4 MG/ML VIAL (1 ml vial) IV ONE (15:43)
[2018-03-01 16:08] LABS: EGFR Non-African American 53.3 (>60)
[2018-03-01] MEDS ORDERED: Iodixanol* (CONTRAST) 320 MG/ML 100 ML SDV IV ONE (16:28)
[2018-03-01 16:44] LABS: Urine Appearance Clear; Urine Blood Negative (Negative); Urine Color Straw; Urine Ketones Negative (Negative); Urine Protein Negative (Negative); Urine Specific Gravity 1.003 (1.010-1.030); Urine Urobilinogen Negative (Negative)
--- NOTE | 2018-03-01 17:10 | RAD ---
INDICATION: Abdominal pain status post endoscopy and colonoscopy. COMPARISON: Comparison is made with a prior CT of the abdomen and pelvis from August 27, 2017. TECHNIQUE: A CT scan of the abdomen and pelvis was performed with intravenous and without oral contrast following intravenous injection of 82 ml of Visipaque 320 nonionic contrast. Contiguous axial sections were obtained from the lung bases through the symphysis pubis. Images were reconstructed in the coronal and sagittal planes. FINDINGS: The lung bases are clear. No pleural effusion is present. The liver and spleen are mildly enlarged without significant focal abnormality. The liver is slightly decreased in attenuation consistent with fatty filtration. The gallbladder is distended. No gallbladder wall thickening or calcified gallstones are seen. The pancreas appears slightly atrophic. The kidneys and adrenal glands are normal in size. No hydronephrosis is seen. There is a 1.5 cm left renal cyst. The aorta is normal in caliber with mild calcific plaque present. No significant enlarged retroperitoneal lymph nodes are seen. The stomach, small and large bowel appear nondistended. The appendix is not well seen. The cecum is located in the right upper quadrant which is unchanged. There is moderate sigmoid diverticulosis without evidence for diverticulitis. There is no evidence for colitis. There is a small periumbilical hernia containing fat. The patient is status post hysterectomy. No free intraperitoneal air or fluid is seen. No significant focal osseous abnormality is seen. IMPRESSION: 1. NO EVIDENCE FOR ACUTE FINDING OR CAUSE FOR THE PATIENT'S ABDOMINAL PAIN IS SEEN. 2. DISTENDED GALLBLADDER. THIS CAN BE FURTHER EVALUATED WITH A RIGHT UPPER QUADRANT ULTRASOUND IF OF CLINICAL CONCERN. 3. MILD HEPATOSPLENOMEGALY AND HEPATIC STEATOSIS.
[2018-03-01 18:18] VITALS: BP 132/74
--- NOTE | 2018-03-04 10:33 | ED ---
Lemuel Gotti Angela, scribed for Lul Durand MD on 03/01/18 at 1539 . Abdominal Pain/Female - HPI Summary HPI Summary: This pt is a 72 y/o female presenting to [facility] c/o abd pain since yesterday afternoon. She reports her pain began yesterday in the afternoon. Pt additionally reports nausea. Denies vomiting, diarrhea, constipation. She currently rates her pain 9 out of 10 in severity. She states she has had this same pain in the past. Pt reports she had a colonoscopy and endoscopy 4 days ago (on Sunday) in [place] by Dr. Cabrera. She notes they all resulted normal. PMHx includes gastroparesis. - History of Current Complaint Chief Complaint: EDAbdPain Stated Complaint: ABD PAIN Time Seen by Provider: 03/01/18 15:31 Hx Obtained From: Patient Onset/Duration: Lasting Days - 1, Still Present Timing: Days Severity Currently: Severe Pain Intensity: 9 Pain Scale Used: 0-10 Numeric Location: Epigastric Radiates: No Aggravating Factor(s): Nothing Alleviating Factor(s): Nothing Associated Signs and Symptoms: Positive: Nausea. Negative: Fever, Constipation , Vomiting, Diarrhea Allergies/Adverse Reactions: Allergies Allergy/AdvReac Type Severity Reaction Status Date / Time Sulfa (Sulfonamide Allergy Unknown Verified 03/01/18 12:36 Antibiotics) Reaction Details tape Allergy Rash Uncoded 03/01/18 12:36 PMH/Surg Hx/FS Hx/Imm Hx Endocrine/Hematology History: Denies: Hx Diabetes - pre-DM Cardiovascular History: Denies: Hx Hypertension GI History: Reports: Hx Gastroesophageal Reflux Disease, Hx Irritable Bowel, Other GI Disorders - pos: gastroparesis Denies: Hx Diverticulosis Sensory History: Reports: Hx Contacts or Glasses Denies: Hx Legally Blind, Hx Hearing Aid Opthamlomology History: Reports: Hx Contacts or Glasses Denies: Hx Legally Blind - Cancer History Hx Chemotherapy: No Hx Radiation Therapy: No - Surgical History Surgery Procedure, Year, and Place: HYSTERECTOMY. Infectious Disease History: No Infectious Disease History: Denies: Traveled Outside the [place] in Last 30 Days - Family History Family History: sister: RA. mother of Breast CA - Social History Alcohol Use: Rare Substance Use Type: Reports: None Hx Tobacco Use: No Smoking Status (MU): Never Smoked Tobacco Review of Systems Negative: Fever, Chills Negative: Chest Pain Negative: Shortness Of Breath Positive: Abdominal Pain, Nausea. Negative: Vomiting, Diarrhea, Other - constipation Skin: Negative Neurological: Negative All Other Systems Reviewed And Are Negative: Yes Physical Exam - Summary Physical Exam Summary: VITAL SIGNS: Reviewed. GENERAL: Patient is a well-developed and nourished female who is lying comfortable in the stretcher. Patient is not in any acute respiratory distress. HEAD AND FACE: Normocephalic and atraumatic. EYES: PERRLA, EOMI x 2, No injected conjunctiva. EARS: Hearing grossly intact. Ear canals and tympanic membranes are WNL. MOUTH: Oropharynx within normal limits. NECK: Supple, trachea is midline, no adenopathy, no JVD. CHEST: Symmetric, no tenderness at palpation LUNGS: Clear to auscultation bilaterally. No wheezing or crackles. CVS: RRR, S1 and S2 present, no murmurs or gallops appreciated. ABDOMEN: Soft. Epigastric tenderness. No signs of distention. Positive bowel sounds. No rebound no guarding, and no masses palpated. No abdominal bruit or pulsations. EXTREMITIES: FROM in all major joints, no edema, no cyanosis or clubbing. NEURO: Alert and oriented x 3. No acute neurological deficits. Speech is normal. SKIN: Dry and warm Triage Information Reviewed: Yes Vital Signs On Initial Exam: Initial Vitals Temp Pulse Resp BP Pulse Ox 98.1 F 61 17 125/73 100 03/01/18 12:32 03/01/18 12:32 03/01/18 12:32 03/01/18 12:32 03/01/18 12:32 Vital Signs Reviewed: Yes Diagnostics - Vital Signs Vital Signs Temp Pulse Resp BP Pulse Ox 03/01/18 14:26 97.6 F 64 16 135/61 100 03/01/18 12:32 98.1 F 61 17 125/73 100 - Laboratory Result Diagrams: 03/01/18 15:33 03/01/18 15:34 Lab Statement: Any lab studies that have been ordered have been reviewed, and results considered in the medical decision making process. - CT Abdomen/Pelvis CT CT Interpretation: No Acute Changes - IMPRESSION: 1. No evidence for acute finding or cause for the patient's abdominal pain is seen. 2. Distended gallbladder. This can be further evaluated with a right upper quadrant ultrasound if of clinical concern. 3. Mild hepatosplenomegaly and hepatic steatosis. Dr. Durand has reviewed this radiology report. CT Interpretation Completed By: Radiologist Re-Evaluation - Re-Evaluation First Eval Re-Evaluation Time: 17:20 Change: Improved Comment: I reviewed the lab and CT results with the pt. She will be discharged home. Abdominal Pain Fem Course/Dx - Course Course Of Treatment: Pt is a 72 y/o female who presents with abd pain since yesterday afternoon. She reports her pain began yesterday in the afternoon. Pt additionally reports nausea. Denies vomiting, diarrhea, constipation. Test results without any significant abnormalities except for BUN/creatinine which is slightly elevated, possibly secondary to dehydration. In the ED course the pt was given IV fluids, morphine for the pain. Abdomen/pelvis CT shows 1. No evidence for acute finding or cause for the patient's abdominal pain is seen. 2. Distended gallbladder. This can be further evaluated with a right upper quadrant ultrasound if of clinical concern. 3. Mild hepatosplenomegaly and hepatic steatosis. After the medications, the pts abdominal pain improved and she is feeling better. Therefore the pt will be discharged home with follow up from PCP. She will be given a prescription for Bentyl. I discussed all the findings and test results with the patient. All questions were answered to patient satisfaction. There were no further complaints or concerns. She is instructed to return to the ED for any worsening or new symptoms. Pt is hemodynamically stable, alert and oriented x3. - Diagnoses Provider Diagnoses: Diffuse abdominal pain Discharge - Sign-Out/Discharge Documenting (check all that apply): Discharge/Admit/Transfer - Discharge - Discharge Plan Condition: Stable Disposition: HOME Prescriptions: Dicyclomine CAP* [Bentyl CAP*] 10 mg PO TID PRN #10 cap PRN Reason: Pain Patient Education Materials: Abdominal Pain (ED) Referrals: Jody Pérez MD [Primary Care Provider] - 3 Days Additional Instructions: Please follow up with your primary care provider. RETURN TO THE ED FOR ANY NEW OR WORSENING SYMPTOMS. The documentation as recorded by the Lemuel tuttle Angela accurately reflects the service I personally performed and the decisions made by me, Lul Durand MD.
== END 2018-03-01 17:35 | disposition home or self-care (01) ==
LOC: ED 12:12
DX: R10.9 Unspecified abdominal pain (principal); R11.0 Nausea; R79.9 Abnormal finding of blood chemistry, unspecified; K82.8 Other specified diseases of gallbladder; R16.2 Hepatomegaly with splenomegaly, not elsewhere classified; K76.0 Fatty (change of) liver, not elsewhere classified; Z87.19 Personal history of other diseases of the digestive system; Z88.2 Allergy status to sulfonamides
CPT/HCPCS: 36415; 74177; 80053; 81003; 83605; 83690; 85025; 86140; 96374; 99283; J2270; Q9967